=== PATIENT | female | born 1955 | race Caucasian/White ===

== ENCOUNTER 2020-01-31 14:12 | Inpatient (IN) ==
[2020-01-31] MEDS ORDERED: ONDANSETRON 4 MG/2 ML VIAL IV ONE (14:30)
[2020-01-31] MEDS ORDERED: HYDROmorphone 0.5 MG/0.5 ML SYRINGE IV PRN (14:30)
[2020-01-31] MEDS ORDERED: LACTATED RINGERS 1,000 ML IV ONE (14:30)
--- NOTE | 2020-01-31 14:35 | Emergency Department Note ---
Abdominal Pain HPI - General Chief Complaint: Abdominal Pain Stated Complaint: upper abd pain, possibly gallbladder? Time Seen by Provider: 01/31/20 14:30 Source: patient Mode of arrival: ambulatory Limitations: no limitations - History of Present Illness HPI Narrative: This patient began having right upper quadrant pain about 5 PM yesterday afternoon and it will go away. Associated with some nausea. She has had 2 other episodes similar to this but they both went away in about 2 hours. No diarrhea. She does feel little discomfort in the back. - Related Data Home Medications Medication Instructions Recorded Confirmed Estradiol [Estrace] 2 mg PO DAILY 01/31/20 01/31/20 Progesterone, Micronized 200 mg PO HS 01/31/20 01/31/20 [Progesterone] Thyroid,Pork [[place] Thyroid] 15 mg PO DAILY 01/31/20 01/31/20 Allergies Allergy/AdvReac Type Severity Reaction Status Date / Time Penicillins Allergy Intermediate Hives Verified 01/31/20 17:22 Review of Systems All systems ED: reviewed and negative except as stated. Abdominal Pain PMH - Past Medical History Medical history: Reports: no medical history - Social History Smoking status: Never smoker Physical Exam Limitations: no limitations General appearance: alert Head: atraumatic Eye: Present: normal appearance ENT: Present: normal exam Neck: Present: normal inspection Chest: Present: normal inspection Respiratory: Present: normal lung sounds bilaterally Cardiovascular: Present: regular rate, normal rhythm, normal heart sounds Abdominal: Present: soft, tenderness. Absent: distention, guarding, rebound, rigidity Abdominal tenderness: Present: RUQ, moderate Neurological: Present: alert Psychiatric: Present: normal affect Skin: Present: warm, dry Course Vital Signs Temperature 97.9 F 01/31/20 14:16 Pulse Rate 88 01/31/20 14:16 Respiratory Rate 18 01/31/20 14:16 Blood Pressure 169/80 01/31/20 14:16 Pulse Oximetry (%) 98 01/31/20 14:16 Temperature 98.8 F 02/01/20 04:10 Pulse Rate 80 02/01/20 04:10 Respiratory Rate 14 02/01/20 04:10 Blood Pressure 131/70 02/01/20 04:10 Pulse Oximetry (%) 96 02/01/20 04:10 Abdominal Pain - MDM Narrative Medical decision making narrative: This patient has evidence of cholecystitis. I treated her with Levaquin and Flagyl due to her penicillin allergy. Discussed the case with Dr. Ramirez and she will be admitted to the hospital. - Lab Data Lab results reviewed: Yes I reviewed the patient's lab results. Result diagrams: 02/01/20 05:35 02/01/20 05:36 Lab Results 01/31/20 01/31/20 01/31/20 Range/Units 14:40 14:58 14:58 WBC 9.3 (4.50-11.00) K/mcL RBC 4.73 (3.59-5.38) M/mcL Hgb 14.8 (11.2-15.7) g/dL Hct 43.0 (34.1-44.9) % MCV 90.9 (80.0-100.0) fL MCH 31.3 (26.0-34.0) pg MCHC 34.4 (31.0-36.0) g/dL RDW 12.6 (11.5-14.5) % Plt Count 247 (140-440) K/mcL MPV 10.7 H (7.4-10.4) fL Gran % 77.4 (38.0-78.0) % Lymph % (Auto) 12.4 L (15.5-49.0) % [place] % (Auto) 9.3 (1.0-12.0) % Eos % (Auto) 0.5 (0.0-7.0) % Baso % (Auto) 0.4 (0.0-2.0) % Gran # 7.16 (1.80-8.00) K/mcL Lymph # (Auto) 1.15 L (1.50-4.80) K/mcL [place] # (Auto) 0.86 (0.10-0.90) K/mcL Eos # (Auto) 0.05 (0.00-0.70) K/mcL Baso # (Auto) 0.04 (0.00-0.30) K/mcL PT (11.9-14.5) sec INR (0.9-1.1) Sodium 136 (133-145) mmol/L Potassium 3.5 (3.3-5.1) mmol/L Chloride 103 (96-108) mmol/L Carbon Dioxide 18 L (22-30) mmol/L Anion Gap 15.0 (8-16) BUN 11 (8-23) mg/dl Creatinine 0.7 (0.6-1.1) mg/dl GFR Calculation 91 Glucose 118 H (70-105) mg/dL Calcium 9.0 (8.6-10.4) mg/dl Total Bilirubin 2.4 H (0.0-1.0) mg/dL AST 1132 H (0-37) U/l ALT 1046 H (0-40) U/l Alkaline Phosphatase 196 H (39-117) U/L Total Protein 7.1 (5.9-8.4) gm/dL Albumin 3.9 (3.2-5.2) gm/dL Globulin 3.2 (2.2-3.7) gm/dL Albumin/Globulin Ratio 1.2 (1.0-2.3) Lipase 25 (7-60) U/L Urine Color Yellow Urine Appearance Hazy Urine pH 7.0 (5.0-9.0) Ur Specific [place] 1.014 (1.000-1.035) Urine Protein Neg (NEG) mg/dL Urine Glucose (UA) Negative (NEG) mg/dL Urine Ketones Neg (NEG) mg/dL Urine Occult Blood 0.03 A (<0.03) mg/dL Urine Nitrate Neg (NEG) Urine Bilirubin Neg (NEG) mg/dL Urine Urobilinogen Neg (NEG) mg/dL Ur Leukocyte Esterase 250 A (NEG) /uL Urine RBC 2 H (0-1) /hpf Urine WBC 31 H (0-4) /hpf Ur Squamous Epith Cells 17 H (0-4) /hpf Ur Transition Epith Cell 2 (0-2) /hpf Urine Bacteria Few A (0) /hpf Urine Mucus Mod (0) /hpf Ur Culture Indicated? No 01/31/20 Range/Units 14:58 WBC (4.50-11.00) K/mcL RBC (3.59-5.38) M/mcL Hgb (11.2-15.7) g/dL Hct (34.1-44.9) % MCV (80.0-100.0) fL MCH (26.0-34.0) pg MCHC (31.0-36.0) g/dL RDW (11.5-14.5) % Plt Count (140-440) K/mcL MPV (7.4-10.4) fL Gran % (38.0-78.0) % Lymph % (Auto) (15.5-49.0) % [place] % (Auto) (1.0-12.0) % Eos % (Auto) (0.0-7.0) % Baso % (Auto) (0.0-2.0) % Gran # (1.80-8.00) K/mcL Lymph # (Auto) (1.50-4.80) K/mcL [place] # (Auto) (0.10-0.90) K/mcL Eos # (Auto) (0.00-0.70) K/mcL Baso # (Auto) (0.00-0.30) K/mcL PT 12.3 (11.9-14.5) sec INR 0.9 (0.9-1.1) Sodium (133-145) mmol/L Potassium (3.3-5.1) mmol/L Chloride (96-108) mmol/L Carbon Dioxide (22-30) mmol/L Anion Gap (8-16) BUN (8-23) mg/dl Creatinine (0.6-1.1) mg/dl GFR Calculation Glucose (70-105) mg/dL Calcium (8.6-10.4) mg/dl Total Bilirubin (0.0-1.0) mg/dL AST (0-37) U/l ALT (0-40) U/l Alkaline Phosphatase (39-117) U/L Total Protein (5.9-8.4) gm/dL Albumin (3.2-5.2) gm/dL Globulin (2.2-3.7) gm/dL Albumin/Globulin Ratio (1.0-2.3) Lipase (7-60) U/L Urine Color Urine Appearance Urine pH (5.0-9.0) Ur Specific [place] (1.000-1.035) Urine Protein (NEG) mg/dL Urine Glucose (UA) (NEG) mg/dL Urine Ketones (NEG) mg/dL Urine Occult Blood (<0.03) mg/dL Urine Nitrate (NEG) Urine Bilirubin (NEG) mg/dL Urine Urobilinogen (NEG) mg/dL Ur Leukocyte Esterase (NEG) /uL Urine RBC (0-1) /hpf Urine WBC (0-4) /hpf Ur Squamous Epith Cells (0-4) /hpf Ur Transition Epith Cell (0-2) /hpf Urine Bacteria (0) /hpf Urine Mucus (0) /hpf Ur Culture Indicated? - Radiology Data Radiology results reviewed: Yes I reviewed the patient's radiology results. Disposition Pt seen by TEMPERATURE LOGGING OPERATOR/PA only: No Clinical Impression: Cholelithiasis and cholecystitis without obstruction Disposition: Xfer As Inpt ([facility]) Condition: Fair
[2020-01-31] MEDS ORDERED: metroNIDAZOLE 500 MG/100 ML BAG IV ONE (15:30)
[2020-01-31] MEDS ORDERED: LEVOFLOXACIN 750 MG/150 ML BAG IV ONE (15:30)
[2020-01-31 15:37] LABS: Basophils # (Auto) 0.04 K/mcL (0.00-0.30); Basophils % (Auto) 0.4 % (0.0-2.0); Eosinophils # (Auto) 0.05 K/mcL (0.00-0.70); Eosinophils % (Auto) 0.5 % (0.0-7.0); Granulocytes % (Auto) 77.4 % (38.0-78.0); Hemoglobin 14.8 g/dL (11.2-15.7); Lymphocytes # (Auto) 1.15 K/mcL (1.50-4.80); Lymphocytes % (Auto) 12.4 % (15.5-49.0); Mean Cell Volume 90.9 fL (80.0-100.0); Mean Corpuscular HGB Conc 34.4 g/dL (31.0-36.0); Mean Platelet Volume 10.7 fL (7.4-10.4); Monocytes # (Auto) 0.86 K/mcL (0.10-0.90); Monocytes % (Auto) 9.3 % (1.0-12.0); Platelet Count 247 K/mcL (140-440); RBC 4.73 M/mcL (3.59-5.38); Red Cell Distribution Width 12.6 % (11.5-14.5); WBC 9.3 K/mcL (4.50-11.00)
--- NOTE | 2020-01-31 15:54 | Ultrasound Report ---
CLINICAL INFORMATION: , Pain COMPARISON: None. FINDINGS: Liver is mildly enlarged and heterogeneous spanning 18 cm mid clavicular line. No focal hepatic lesions. There are multiple small stones in the gallbladder,. Gallbladder wall is mildly thickened at 4 mm and there is focal tenderness. Common bile duct is normal: 5 mm and the pancreas is unremarkable. No free fluid IMPRESSION: Cholecystitis. Mild hepatomegaly with heterogeneous echotexture suggesting diffuse hepatocellular process Interpreted and Authenticated by: Oleg Castillo 01/31/20
[2020-01-31 15:55] LABS: Appearance,Urine HAZY; Bacteria,Urine FEW /hpf (0); Bilirubin,Urine NEG (NEG); Color,Urine YELLOW; Culture Indicated,Urine NO; Glucose,Urine (UA) NEGATIVE (NEG); Ketones,Urine NEG (NEG); Leukocyte Esterase,Urine 250 /uL (NEG); Mucus,Urine MOD /hpf (0); Nitrate,Urine NEG (NEG); Protein,Urine NEG (NEG); Specific Gravity,Urine 1.014 (1.000-1.035); Urine Blood 0.03 mg/dL (<0.03); Urine RBC 2 /hpf (0-1); Urine Squamous Epithelial Cell 17 /hpf (0-4); Urine Transitional Epi Cells 2 /hpf (0-2); Urine WBC 31 /hpf (0-4); Urobilinogen,Urine NEG (NEG)
[2020-01-31 15:56] LABS: Albumin 3.9 gm/dL (3.2-5.2); Albumin/Globulin Ratio 1.2 (1.0-2.3); Alkaline Phosphatase 196 U/L (39-117); Bilirubin,Total 2.4 mg/dL (0.0-1.0); Blood Urea Nitrogen 11 mg/dl (8-23); Carbon Dioxide 18 mmol/L (22-30); Chloride 103 mmol/L (96-108); Globulin 3.2 gm/dL (2.2-3.7); Glomerular Filtration Rate 91; Glucose 118 mg/dL (70-105)
[2020-01-31 16:13] LABS: ALT/SGPT 1046 U/l (0-40); AST/SGOT 1132 U/l (0-37)
[2020-01-31] MEDS ORDERED: PROMETHAZINE 25 MG/ML VIAL IM PRN (16:21)
[2020-01-31] MEDS: LEVOFLOXACIN 750 MG/150 ML BAG IV SCH (17:48)
[2020-01-31] MEDS ORDERED: PROMETHAZINE 25 MG/ML VIAL IV PRN (18:06)
--- NOTE | 2020-01-31 18:07 | General Surg History&Physical ---
History of Present Illness Patient information: Note initiated : 01/31/20 at 6:04 pm Service Date, if different from initiated Date: [] Patient: Francine Thrasher a 64 y/o F admitted on 01/31/20 for Upper abd Pain, Possibly Gallbladder?. Chief Complaint: [] HPI: Ms. Thrasher is a 64 year old F admitted for evaluation of abdominal pain. The patient had onset of severe right upper quadrant epigastric pain last evening about 5 PM. The pain continued through the night. She developed nausea earlier today. There was no radiation to her back shoulder. She has had 3 prior episodes the last week but these lasted only about 2 hours and then resolved. There is no relationship to meals. Patient evaluated in emergency room and noted to have elevated LFTs and bilirubin. Lipase was normal. She remains mildly symptomatic. Ultrasound shows mildly thickened gallbladder wall with multiple small stones. No ductal stone was seen. Review of Systems All systems PM: reviewed and no additional remarkable complaints except as stated (negative except as noted in the HPI and below) - EENT Nose, mouth and throat: dizziness - Gastrointestinal abdominal pain, cramping, nausea - Genitourinary Genitourinary: urinary incontinence (stress incontinence) - Musculoskeletal other (right hip pain) - Hematologic/Lymphatic no easy bleeding, no easy bruising, no lymphadenopathy - Allergic/Immunologic no tongue swelling, no throat swelling, no uticaria, no wheezing, no lip swelling Past History Past medical history: No known chronic medical illness except for hypothyroidism Past surgical history: Appendectomy. Left total hip arthroplasty Past family history: Father age 52 due to throat cancer Mother age 69 due to congestive heart 1 sibling with coronary artery disease. 1 sibling with ovarian cancer, multiple siblings with hypertension Past social history: Denies tobacco use. Occasional alcohol use. Denies drug use. Retired Medications and Allergies Home Medications Medication Instructions Recorded Confirmed Type Estradiol [Estrace] 2 mg PO DAILY 01/31/20 01/31/20 History Progesterone, Micronized 200 mg PO HS 01/31/20 01/31/20 History [Progesterone] Thyroid,Pork [[place] Thyroid] 15 mg PO DAILY 01/31/20 01/31/20 History Allergies Allergy/AdvReac Type Severity Reaction Status Date / Time Penicillins Allergy Intermediate Hives Verified 01/31/20 17:22 Exam Temp Pulse Resp BP Pulse Ox 98.6 F 83 18 165/76 96 01/31/20 17:14 01/31/20 17:14 01/31/20 17:14 01/31/20 17:14 01/31/20 17:14 - General physical appearance well developed, well nourished, no distress - Eyes PERRL, normal ocular movement, icteric (mild scleral icterus) - ENT normal pinna, normal nares, normal mucosa, no hearing loss, no congestion - Head Head exam IM: Present: atraumatic, normocephalic - Neck no masses, no bruits, trachea midline, no lymphadenopathy, no venous distension - Cardiovascular Cardiovascular exam IM: Present: normal rate and rhythm - Respiratory normal expansion, normal respiratory effort, clear to percussion, clear to auscultation - Abdomen Abdomen: Present: soft, tender (mild epigastric and right upper quadrant tenderness with guarding), bowel sounds, guarding Hernia: Present: none - Genitourinary Present: normal external genitalia - Integumentary Present: no rash, no growths, no abnormal pigmentation - Neurologic Present: normal coordination, normal sensation - Musculoskeletal Present: normal gait, normal posture - Psychiatric Present: oriented to time, oriented to person, oriented to place, speech is normal, memory intact Assessment and Plan (1) Cholelithiasis and cholecystitis without obstruction Because of elevated transaminases. Patient will participate She's been counseled for laparoscopic cholecystectomy. If there is common bile duct stone. , Gastroenterology will be consulted for ERCP Status: Acute
[2020-01-31] MEDS: 0.9 % SODIUM CHLORIDE 1,000 ML IV SCH (18:54)
[2020-01-31 19:06] LABS: INR 0.9 (0.9-1.1); Prothrombin Time 12.3 sec (11.9-14.5)
[2020-01-31] MEDS: PROGESTERONE PO SCH (22:00)
[2020-02-01] MEDS: 0.9 % SODIUM CHLORIDE 1,000 ML IV SCH ×3 (04:16→16:45)
[2020-02-01 06:29] LABS: Basophils # (Auto) 0.05 K/mcL (0.00-0.30); Basophils % (Auto) 0.9 % (0.0-2.0); Eosinophils # (Auto) 0.16 K/mcL (0.00-0.70); Eosinophils % (Auto) 2.8 % (0.0-7.0); Hemoglobin 13.4 g/dL (11.2-15.7); Lymphocytes # (Auto) 1.29 K/mcL (1.50-4.80); Lymphocytes % (Auto) 22.4 % (15.5-49.0); Mean Cell Volume 92.6 fL (80.0-100.0); Mean Corpuscular HGB Conc 33.5 g/dL (31.0-36.0); Mean Platelet Volume 10.3 fL (7.4-10.4); Monocytes # (Auto) 0.74 K/mcL (0.10-0.90); Monocytes % (Auto) 12.9 % (1.0-12.0); Platelet Count 217 K/mcL (140-440); RBC 4.32 M/mcL (3.59-5.38); Red Cell Distribution Width 13.1 % (11.5-14.5); WBC 5.8 K/mcL (4.50-11.00)
[2020-02-01 06:58] LABS: AST/SGOT 587 U/l (0-37); Albumin 3.3 gm/dL (3.2-5.2); Albumin/Globulin Ratio 1.2 (1.0-2.3); Alkaline Phosphatase 179 U/L (39-117); Bilirubin,Direct 0.5 mg/dL (0.0-0.3); Bilirubin,Total 1.4 mg/dL (0.0-1.0); Calcium 8.2 mg/dl (8.6-10.4); Carbon Dioxide 20 mmol/L (22-30); Globulin 2.7 gm/dL (2.2-3.7); Glomerular Filtration Rate 77; Glucose 101 mg/dL (70-105); Lactate Dehydrogenase 313 U/L (94-250); Triglycerides 99 mg/dl (<150)
[2020-02-01 07:14] LABS: ALT/SGPT 743 U/l (0-40); Blood Urea Nitrogen 7 mg/dl (8-23); Chloride 110 mmol/L (96-108); Phosphorous 2.3 mg/dL (2.7-4.5)
[2020-02-01] MEDS: THYROID,PORK 30 MG TABLET PO SCH (08:10)
--- NOTE | 2020-02-01 09:20 | XRay Report ---
CLINICAL INFORMATION: Preop COMPARISON: 06/01/2017 TECHNIQUE: PA and Lateral views FINDINGS: The heart size, mediastinum and pulmonary vessels are unremarkable. The lungs are clear. There are no effusions. The bones and soft tissues are within normal limits. IMPRESSION: Normal chest. Interpreted and Authenticated by: Oleg Castillo 02/01/20
[2020-02-01] MEDS: ESTRADIOL 1 MG TABLET PO SCH (09:33)
[2020-02-01] MEDS: LEVOFLOXACIN 750 MG/150 ML BAG IV SCH (10:00)
--- NOTE | 2020-02-01 11:24 | Magnetic Resonance Report ---
CLINICAL INFORMATION: Right upper quadrant pain COMPARISON: None. TECHNIQUE: MRCP was performed using 3D FRFSE respiratory triggered and single-shot FSE thick slab technique. Axial T2 SSFSE and coronal SSFSE images were obtained through the upper abdomen as well. FINDINGS: There is moderate diffuse gallbladder wall thickening with pericholecystic fluid and small stones layering dependently in the gallbladder all compatible with cholecystitis. Intrahepatic, common hepatic and common bile ducts are normal in caliber, the CBD is 5 mm. No evidence of choledocholithiasis. The liver is normal in size configuration and signal intensity without focal lesion. Both kidneys, adrenal glands, spleen and pancreas including pancreatic duct are unremarkable. There is no free air, free fluid or adenopathy. Small hiatal hernia appreciated. Stomach and visualized small large bowel are normal. IMPRESSION: 1. Cholecystitis. 2. Intrahepatic-caio common hepatic common bile and pancreatic ducts are all normal. No evidence of choledocholithiasis. 3. Liver is unremarkable. 4. Small hiatal hernia Interpreted and Authenticated by: Oleg Castillo 02/01/20
--- NOTE | 2020-02-01 13:13 | General Surgery Progress Note ---
Subjective Patient reports: feels better, pain is less, flatus, diarrhea, afebrile Narrative: Note initiated : 02/01/20 at 1:10 pm Service Date, if different from initiated Date: [] Patient: Francine Thrasher 64 y/o F admitted on 01/31/20 for Upper abd Pain, Possibly Gallbladder?. Chief Complaint: [patient is feeling better. She has less discomfort. She does not have nausea or pain. White blood count 5.8, hemoglobin 13.4, hematocrit 40, phosphorus 2.3, bilirubin 1.4, liver function tests are trending downward. MRCP shows no evidence of common bile duct stone. Patient counseled for laparoscopic cholecystectomy which will be performed tomorrow.] Objective Temp Pulse Resp BP Pulse Ox 98.3 F 78 18 144/78 94 02/01/20 11:58 02/01/20 11:58 02/01/20 11:58 02/01/20 11:58 02/01/20 11:58 - Additional Data Intake & Output - Last 24 hours: Intake & Output 01/30/20 01/31/20 02/01/20 02/02/20 05:59 05:59 05:59 05:59 Intake Total 2884 150 Output Total 900 900 Balance 1984 -750 Weight 169 lb - General physical appearance well developed, well nourished, no distress - Eyes PERRL, normal ocular movement - ENT normal pinna, normal nares, normal mucosa, no hearing loss, no congestion - Neck no masses, no bruits, trachea midline, no lymphadenopathy, no venous distension - Respiratory normal expansion, normal respiratory effort, clear to auscultation - Cardiovascular Cardiovascular exam: Present: normal rate and rhythm, RRR, +S1, +S2. Absent: JVD, tachycardia - Abdomen non tender, bowel sounds (present), surgical scars (none), masses (none) - Integumentary no rash, no growths, no abnormal pigmentation - Neurologic normal coordination, normal sensation - Musculoskeletal normal gait, normal posture - Psychiatric oriented to time, oriented to person, oriented to place, speech is normal, me pam intact - Labs 02/01/20 05:35 02/01/20 05:36 Diabetes panel 01/31/20 02/01/20 Range/Units 14:58 05:36 Sodium 136 141 (133-145) mmol/L Potassium 3.5 3.9 (3.3-5.1) mmol/L Chloride 103 110 H (96-108) mmol/L Carbon Dioxide 18 L 20 L (22-30) mmol/L BUN 11 7 L (8-23) mg/dl Creatinine 0.7 0.8 (0.6-1.1) mg/dl Glucose 118 H 101 (70-105) mg/dL Calcium 9.0 8.2 L (8.6-10.4) mg/dl AST 1132 H 587 H (0-37) U/l ALT 1046 H 743 H (0-40) U/l Alkaline Phosphatase 196 H 179 H (39-117) U/L Total Protein 7.1 6.0 (5.9-8.4) gm/dL Albumin 3.9 3.3 (3.2-5.2) gm/dL Triglycerides 99 (<150) mg/dl Calcium panel 01/31/20 02/01/20 Range/Units 14:58 05:36 Calcium 9.0 8.2 L (8.6-10.4) mg/dl Phosphorus 2.3 L (2.7-4.5) mg/dL Albumin 3.9 3.3 (3.2-5.2) gm/dL Pituitary panel 01/31/20 02/01/20 Range/Units 14:58 05:36 Sodium 136 141 (133-145) mmol/L Potassium 3.5 3.9 (3.3-5.1) mmol/L Chloride 103 110 H (96-108) mmol/L Carbon Dioxide 18 L 20 L (22-30) mmol/L BUN 11 7 L (8-23) mg/dl Creatinine 0.7 0.8 (0.6-1.1) mg/dl Glucose 118 H 101 (70-105) mg/dL Calcium 9.0 8.2 L (8.6-10.4) mg/dl Adrenal panel 01/31/20 02/01/20 Range/Units 14:58 05:36 Sodium 136 141 (133-145) mmol/L Potassium 3.5 3.9 (3.3-5.1) mmol/L Chloride 103 110 H (96-108) mmol/L Carbon Dioxide 18 L 20 L (22-30) mmol/L BUN 11 7 L (8-23) mg/dl Creatinine 0.7 0.8 (0.6-1.1) mg/dl Glucose 118 H 101 (70-105) mg/dL Calcium 9.0 8.2 L (8.6-10.4) mg/dl Total Bilirubin 2.4 H 1.4 H (0.0-1.0) mg/dL AST 1132 H 587 H (0-37) U/l ALT 1046 H 743 H (0-40) U/l Alkaline Phosphatase 196 H 179 H (39-117) U/L Total Protein 7.1 6.0 (5.9-8.4) gm/dL Albumin 3.9 3.3 (3.2-5.2) gm/dL Assessment and Plan (1) Cholelithiasis and cholecystitis without obstruction Status: Acute Assessment and plan: Patient is significantly improved She will be scheduled for laparoscopic cholecystectomy in the morning. Current Visit: Yes - Time Spent With Patient Total time spent is greater than 50% in coordination of care (as documented) at patient's floor/unit and/or counseling patient:
[2020-02-01] MEDS: PROGESTERONE PO SCH ×2 (16:45→21:00)
--- NOTE | 2020-02-01 18:46 | Internal Medicine Consult Note ---
Medical - CN: HPI - Data of Consult Patient: new to practice Consult date: 02/01/20 Requesting physician: Jak Ramirez Primary Care Provider: PCP No - Consult Narrative Reason for consult: elevated liver enzymes History of present illness: Ms. Thrasher is a 64 year old F who is admitted with cholecystitis and we are asked to consult due to elevated liver enzymes. She has a 4 month history of intermittent RUQ strong, steady squeezing abdominal pain that does not radiate to the back. Episodes last 2 hours at a time, but on 01/29 she began to have unrelenting RUQ pain and ultimately presented to ED 01/30. US showed cholecystitis with cholelithiasis and hepatomegaly (18cm at midclavicular line) with echotexture suggesting diffuse hepatocellular process. MRCP showed no choledocholithiasis. Liver enzymes elevated in a predominantly hepatic pattern with transaminases initially in the 1000, ALP 196, total bilirubin 2.4. Today, these have fallen with transaminases 500-700, total bilirubin 1.4. She denies any prior history of liver disease. She denies any blood transfusion, unregulated tattoo, pertinent travel history, family history of liver disease or diabetes. She has not started any new medications, but recently started a variety of supplements for "body aches" and "to clean out fibrin", prescribed Dr Granados at a hormone clinic in [place]. She rarely drinks alchool, perhaps a few times a year. She has never been a heavy drinker. She denies any acetaminophen use. She denies any fever. She has had some dark urine, but no jaundice, pruritus, ascites. CC: Jak Ramirez MD All systems: reviewed and no additional remarkable complaints except as stated (see HPI) Medical - CN: PMH Medical history: Thyroid disease. Surgical history: Appendectomy, left total hip replacement Family history: reviewed and not pertinent Social history: Rare ETOH. Nonsmoker. No history of recreational drug use. Smoking status: Never smoker Have you smoked in the last 12 months: No Drug use: none Alcohol use: rarely Employment history: retired. Moved here from [place] 15 years ago. Medical - CN: Meds Home Medications Medication Instructions Recorded Confirmed Type Estradiol [Estrace] 2 mg PO DAILY 01/31/20 01/31/20 History Progesterone, Micronized 200 mg PO HS 01/31/20 01/31/20 History [Progesterone] Thyroid,Pork [[place] Thyroid] 15 mg PO DAILY 01/31/20 01/31/20 History Allergies Allergy/AdvReac Type Severity Reaction Status Date / Time Penicillins Allergy Intermediate Hives Verified 01/31/20 17:22 Medical - CN: Exam - Constitutional Vitals: Temp Pulse Resp BP Pulse Ox 98.3 F 79 16 155/83 98 02/01/20 16:00 02/01/20 16:00 02/01/20 16:00 02/01/20 16:00 02/01/20 16:00 General appearance: average body habitus, cooperative, no acute distress - Head Head exam: Present: atraumatic, normal inspection - Eye Eye exam: Present: normal appearance - ENT ENT exam: Present: mucous membranes moist, normal external ear exam - Neck Neck exam: Present: normal inspection - GI/Abdominal GI/Abdominal exam: Present: soft, tenderness (RUQ). Absent: guarding, hernia, organomegaly - Extremities Exam Extremities exam: Present: normal inspection, Foot pink and warm. Absent: pedal edema - Skin Skin exam: Present: dry, normal color (No stigmata of chronic liver disease.), warm Medical - CN: Result - Labs CBC & Chem 7: 02/01/20 05:35 02/01/20 05:36 Labs: Short CBC 02/01/20 Range/Units 05:35 WBC 5.8 (4.50-11.00) K/mcL Hgb 13.4 (11.2-15.7) g/dL Hct 40.0 (34.1-44.9) % Plt Count 217 (140-440) K/mcL BMP 02/01/20 05:36 Sodium 141 Potassium 3.9 Chloride 110 H Carbon Dioxide 20 L BUN 7 L Creatinine 0.8 Glucose 101 Calcium 8.2 L Liver Function 02/01/20 Range/Units 05:36 Total Bilirubin 1.4 H (0.0-1.0) mg/dL Direct Bilirubin 0.5 H (0.0-0.3) mg/dL GGT 204 H (5-36) U/L AST 587 H (0-37) U/l ALT 743 H (0-40) U/l Alkaline Phosphatase 179 H (39-117) U/L Albumin 3.3 (3.2-5.2) gm/dL Medical - CN: A/P (1) Cholelithiasis and cholecystitis without obstruction Status: Acute Assessment and plan: We agree with Dr. Ramirez that elevated liver enzymes are likely due to acute cholecystitis. We will order a hepatitis C antibody for cohort screening. She will follow up with our clinic ([facility] [address] [place] [address] ) as an outpatient and further work up will be undertaken if she fails to have normalization of liver profile following cholecystectomy. Drug induced liver injury related to new supplements is a possibility. She appears to understand this plan.
[2020-02-01] MEDS ORDERED: PROGESTERONE MICRONIZED 200 MG PO SCH (21:00)
[2020-02-01] MEDS ORDERED: [UNRECOGNIZED DRUG - OTHER] PO SCH (21:00)
[2020-02-02] MEDS: 0.9 % SODIUM CHLORIDE 1,000 ML IV SCH ×4 (03:15→21:45)
[2020-02-02 06:38] LABS: Basophils # (Auto) 0.04 K/mcL (0.00-0.30); Basophils % (Auto) 0.8 % (0.0-2.0); Eosinophils # (Auto) 0.16 K/mcL (0.00-0.70); Granulocytes % (Auto) 56.7 % (38.0-78.0); Hematocrit 39.3 % (34.1-44.9); Hemoglobin 13.3 g/dL (11.2-15.7); Lymphocytes % (Auto) 28.5 % (15.5-49.0); Mean Cell Volume 93.6 fL (80.0-100.0); Mean Corpuscular HGB Conc 33.8 g/dL (31.0-36.0); Mean Platelet Volume 10.4 fL (7.4-10.4); Monocytes # (Auto) 0.58 K/mcL (0.10-0.90); Platelet Count 214 K/mcL (140-440); Red Cell Distribution Width 13.2 % (11.5-14.5); WBC 5.3 K/mcL (4.50-11.00)
[2020-02-02 06:56] LABS: ALT/SGPT 473 U/l (0-40); AST/SGOT 212 U/l (0-37); Albumin 3.2 gm/dL (3.2-5.2); Albumin/Globulin Ratio 1.2 (1.0-2.3); Alkaline Phosphatase 155 U/L (39-117); Bilirubin,Total 0.6 mg/dL (0.0-1.0); Blood Urea Nitrogen 6 mg/dl (8-23); Carbon Dioxide 22 mmol/L (22-30); Chloride 108 mmol/L (96-108); Globulin 2.6 gm/dL (2.2-3.7); Glomerular Filtration Rate 77; Glucose 110 mg/dL (70-105); Lactate Dehydrogenase 176 U/L (94-250); Triglycerides 106 mg/dl (<150)
[2020-02-02 07:00] LABS: Bilirubin,Direct < 0.2 mg/dL (0.0-0.3); Phosphorous 2.2 mg/dL (2.7-4.5)
[2020-02-02] MEDS: THYROID,PORK 30 MG TABLET PO SCH (07:11)
[2020-02-02] MEDS ORDERED: THYROID, PORK 60 MG TABLET PO SCH (07:30)
[2020-02-02] MEDS: LEVOFLOXACIN 750 MG/150 ML BAG IV SCH (08:16)
[2020-02-02] MEDS: ESTRADIOL 1 MG TABLET PO SCH (08:19)
[2020-02-02] MEDS ORDERED: THYROID PORK 15 MG PO SCH (09:00)
[2020-02-02] MEDS ORDERED: IPRATROPIUM/ALBUTEROL 3 ML AMPUL.NEB NEB PRN ×3 (09:00→12:16)
[2020-02-02] MEDS ORDERED: SCOPOLAMINE 1 PATCH PATCH TOPICAL PRN ×2 (09:00→12:16)
[2020-02-02] MEDS ORDERED: ESTRADIOL 2 MG TABLET PO SCH (09:00)
[2020-02-02] MEDS ORDERED: MIDAZOLAM 2 MG/2 ML VIAL IV ONE (10:40)
[2020-02-02] MEDS ORDERED: fentaNYL 100 MCG/2 ML VIAL IV ONE (10:40)
[2020-02-02] MEDS ORDERED: ROCURONIUM 10 MG/ML ML IV ONE (10:40)
[2020-02-02] MEDS ORDERED: PROPOFOL 200 MG/20 ML VIAL IV ONE (10:40)
[2020-02-02] MEDS ORDERED: LIDOCAINE HCL/PF 100 MG/5 ML SYRINGE IV ONE (10:40)
[2020-02-02] MEDS ORDERED: DEXAMETHASONE 10 MG/ML VIAL IV ONE (10:40)
[2020-02-02] MEDS ORDERED: KETAMINE 100 MG/ML ML IV ONE (10:40)
[2020-02-02] MEDS ORDERED: GLYCOPYRROLATE 0.2 MG/ML VIAL IV ONE (10:40)
[2020-02-02] MEDS ORDERED: PHENYLEPHRINE 10 MG/ML VIAL IV ONE (10:40)
[2020-02-02] MEDS ORDERED: HYDROmorphone 1 MG/ML SYRINGE IV ONE (10:40)
[2020-02-02] MEDS ORDERED: ONDANSETRON 4 MG/2 ML VIAL IV ONE (10:40)
[2020-02-02] MEDS ORDERED: SUGAMMADEX SODIUM 200 MG/2 ML VIAL IV ONE (10:40)
[2020-02-02] MEDS ORDERED: METOPROLOL TARTRATE 5 MG/5 ML VIAL IV PRN (11:05)
[2020-02-02] MEDS ORDERED: PROMETHAZINE 25 MG/ML VIAL IM PRN (11:05)
[2020-02-02] MEDS ORDERED: NALOXONE HCL 0.4 MG/ML VIAL IV PRN (11:05)
[2020-02-02] MEDS ORDERED: HYDROmorphone 0.5 MG/0.5 ML SYRINGE IV PRN (11:05)
[2020-02-02] MEDS ORDERED: LABETALOL 5 MG/ML ML IV PRN (11:05)
[2020-02-02] MEDS ORDERED: LACTATED RINGERS 250 ML IV PRN (11:05)
[2020-02-02] MEDS ORDERED: METHOCARBAMOL 1,000 MG/10 ML VIAL IV PRN (11:05)
[2020-02-02] MEDS ORDERED: MEPERIDINE 50 MG/ML INJECTION IM PRN (11:05)
[2020-02-02] MEDS ORDERED: BENZOCAINE/MENTHOL 1 LOZENGE PO PRN (11:05)
[2020-02-02] MEDS ORDERED: PROMETHAZINE 25 MG/ML VIAL IV PRN ×3 (11:05→12:16)
[2020-02-02] MEDS ORDERED: ONDANSETRON 4 MG/2 ML VIAL IV PRN (11:05)
[2020-02-02] MEDS ORDERED: MEPERIDINE 25 MG/ML SYRINGE IV PRN (11:05)
[2020-02-02] MEDS ORDERED: FLUMAZENIL 0.1 MG/ML ML IV PRN (11:05)
[2020-02-02] MEDS ORDERED: ACETAMINOPHEN 1,000 MG/100 ML BOTTLE IV ONE (11:05)
[2020-02-02] MEDS ORDERED: LACTATED RINGERS 1,000 ML IV SCH (11:15)
--- NOTE | 2020-02-02 11:26 | Brief Operative Note ---
Date of procedure: 02/02/20 Pre-op diagnosis: acute cholecystitis with cholelithiasis Post-op diagnosis: other (acute cholecystitis with cholelithiasis) Procedure: laparoscopic cholecystectomy Grafts/Implants: No Anesthesia: GETA Findings: moderately severe inflammation of gall bladder Complications: none Surgeon: Jak Ramirez Estimated blood loss (cc): 10 Specimens Removed/Pathology: other (gallbladder) Condition: stable Disposition: PACU
[2020-02-02] MEDS: fentaNYL 100 MCG/2 ML VIAL IV PRN ×2 (11:48→11:50)
[2020-02-02] MEDS: 0.9 % SODIUM CHLORIDE 10 ML SYRINGE IV SCH ×2 (13:05→20:11)
[2020-02-02] MEDS: HYDROmorphone 1 MG/ML SYRINGE IV PRN ×2 (13:29→20:11)
--- NOTE | 2020-02-02 13:45 | Operative Note ---
DATE OF OPERATION: 02/02/2020 PREOPERATIVE DIAGNOSIS: Acute cholecystitis with cholelithiasis. POSTOPERATIVE DIAGNOSIS: Acute cholecystitis with cholelithiasis. PROCEDURE: Laparoscopic cholecystectomy. SURGEON: Jak Ramirez M.D. FINDINGS: Moderately-severe inflammation of the gallbladder. DESCRIPTION OF PROCEDURE: Under general anesthesia, the patient's abdomen was prepped and draped in a sterile field. Supraumbilical incision was made. Veress needle was inserted uneventfully. Abdomen was insufflated with 3 liters of CO2. A 12 mm port was placed. Laparoscope was placed. Under laparoscopic guidance, a 12 mm port and two 5 mm ports were placed in the right subcostal region. The gallbladder was grasped and positioned. There was moderately-severe inflammation of gallbladder. Cystic duct and cystic artery were dissected and followed back to the gallbladder. Cystic duct was clipped with five clips and divided. Cystic artery was clipped with four clips and divided. The gallbladder was from the infrahepatic bed using electrocautery. It was placed in an Endopouch and retrieved. Irrigation was carried out, and hemostasis was achieved in the bed. There was no bleeding. No drain was needed. CO2 was allowed to escape from the abdomen, and the ports were removed. Fascia at the umbilicus was closed with interrupted 0 Vicryl. Skin incisions were closed with deb. Tegaderm dressings were placed. The patient tolerated the procedure well. She was awakened, transferred to a bed, and taken to the postanesthetic care unit in stable, satisfactory condition. LCS:bryn Job ID: [id number] Doc ID: [id number] Jak Ramirez M.D.
[2020-02-02] MEDS ORDERED: PROGESTERONE PO SCH (21:00)
[2020-02-03] MEDS: 0.9 % SODIUM CHLORIDE 10 ML SYRINGE IV SCH (05:38)
[2020-02-03 06:46] LABS: Basophils # (Auto) 0.02 K/mcL (0.00-0.30); Basophils % (Auto) 0.2 % (0.0-2.0); Eosinophils # (Auto) 0.01 K/mcL (0.00-0.70); Eosinophils % (Auto) 0.1 % (0.0-7.0); Granulocytes % (Auto) 75.1 % (38.0-78.0); Hematocrit 37.7 % (34.1-44.9); Hemoglobin 12.6 g/dL (11.2-15.7); Lymphocytes # (Auto) 1.72 K/mcL (1.50-4.80); Lymphocytes % (Auto) 16.3 % (15.5-49.0); Mean Cell Volume 93.3 fL (80.0-100.0); Mean Corpuscular HGB Conc 33.4 g/dL (31.0-36.0); Mean Platelet Volume 10.4 fL (7.4-10.4); Monocytes # (Auto) 0.88 K/mcL (0.10-0.90); Monocytes % (Auto) 8.3 % (1.0-12.0); Platelet Count 208 K/mcL (140-440); RBC 4.04 M/mcL (3.59-5.38); Red Cell Distribution Width 13.2 % (11.5-14.5); WBC 10.5 K/mcL (4.50-11.00)
[2020-02-03 07:07] LABS: ALT/SGPT 324 U/l (0-40); AST/SGOT 102 U/l (0-37); Albumin/Globulin Ratio 1.2 (1.0-2.3); Alkaline Phosphatase 135 U/L (39-117); Bilirubin,Direct < 0.2 mg/dL (0.0-0.3); Bilirubin,Total 0.5 mg/dL (0.0-1.0); Blood Urea Nitrogen 7 mg/dl (8-23); Calcium 8.1 mg/dl (8.6-10.4); Carbon Dioxide 19 mmol/L (22-30); Globulin 2.5 gm/dL (2.2-3.7); Glomerular Filtration Rate 91; Glucose 107 mg/dL (70-105); Lactate Dehydrogenase 167 U/L (94-250); Triglycerides 86 mg/dl (<150); Uric Acid 3.9 mg/dL (2.5-8.0)
[2020-02-03 07:21] LABS: Chloride 110 mmol/L (96-108); Phosphorous 2.7 mg/dL (2.7-4.5)
[2020-02-03] MEDS ORDERED: THYROID, PORK 60 MG TABLET PO SCH (07:30)
[2020-02-03] MEDS ORDERED: ESTRADIOL 1 MG TABLET PO SCH (09:00)
[2020-02-03] MEDS ORDERED: LEVOFLOXACIN 750 MG/150 ML BAG IV SCH (09:00)
--- NOTE | 2020-02-03 12:06 | Discharge Summary ---
Providers - Providers Patient information: Note initiated : 02/03/20 at 12:05 pm Service Date, if different from initiated Date: [] Patient: Francine Thrasher 64 y/o F admitted on 01/31/20 for Upper abd Pain, Possibly Gallbladder?. Chief Complaint: [] Date of admission: 01/31/20 Discharge date: 02/03/20 Attending physician: Jak Ramirez [facility] Hospital Course: 64-year-old female with history of acute onset of severe right-sided abdominal pain with nausea on the evening prior to admission. Pain increased in severity and she was seen in the emergency room where was noted that she had a tender abdomen with mild leukocytosis and elevated LFTs. There was significant elevation in the ALT and AST with only mild elevation of alkaline phosphatase and bilirubin was also elevated. Patient was admitted and monitored. She had MRCP which was negative. She underwent laparoscopic cholecystectomy on yesterday. She had acute moderately severe edema of the gallbladder. She is doing well and only has mild soreness at this time. Right blood count 10.5, hemoglobin 12.6, hematocrit 37.7, bilirubin 0.5, LFTs continue to trend downward. Bilirubin is normal. She no longer has nausea. Patient is stable and is ready for discharge home Discharge diagnosis: acute cholecystitis with cholelithiasis Secondary discharge diagnosis: None Reason for admission: abdominal pain nausea leukocytosis and acute gallbladder inflammation Procedures: Laparoscopic cholecystectomy Pertinent studies/significant findings: Upper abdominal ultrasound MRCP Complications: None Exam Temp Pulse Resp BP Pulse Ox 98.0 F 72 18 148/74 98 02/03/20 06:41 02/03/20 06:41 02/03/20 06:41 02/03/20 06:41 02/03/20 06:54 - General physical appearance well developed, well nourished, no distress - Eyes PERRL, normal ocular movement, other (icterus has resolved) - ENT normal pinna, normal nares, normal mucosa, no hearing loss, no congestion - Head Head exam IM: Present: atraumatic, normocephalic - Neck no masses, no bruits, trachea midline, no lymphadenopathy, no venous distension - Cardiovascular Cardiovascular exam IM: Present: normal rate and rhythm - Respiratory normal expansion, normal respiratory effort, clear to percussion, clear to auscultation - Abdomen Abdomen: Present: soft, tender (mild tenderness around port sites otherwise benign abdominal exam), bowel sounds Hernia: Present: none - Genitourinary Present: normal external genitalia - Integumentary Present: no rash, no growths, no abnormal pigmentation - Neurologic Present: normal coordination, normal sensation - Musculoskeletal Present: normal gait, normal posture - Psychiatric Present: oriented to time, oriented to person, oriented to place, speech is normal, memory intact Discharge Plan - Patient/Caregiver Discharge Instructions Diet: Low Fat Additional Instructions: You may shower but do not rub the current dressings off. You may have the dressings changed in the office if needed Prescriptions: oxyCODONE/APAP [Percocet 5-325 mg] 1 tab PO Q4HP PRN #30 tablet PRN Reason: Pain Transmission Status: Sent to [facility] - Follow up Plan Follow up with: Jak Ramirez MD [Physician] - 02/15/20 11:00 am No,PCP [Primary Care Provider] - Disposition: Home, Self-Care Care Plan Goals: This discharge packet is provided to you to help keep you informed about your care. We want to ensure you get everything you need when you go home. You will also be receiving a call from us in a few days to follow up with you and see how you are doing since your discharge. This gives us a chance to listen to any concerns you maybe experiencing since you were discharged or any additional needs you may have, as well as providing us feedback on your care experience. We strive to always provide excellent care and thank you for your feedback and for choosing [facility]. Prognosis: Good Rehab Potential: Good I certify that the patient requires SNF services.: Yes Overall status at discharge: patient is back to baseline Pending Studies Resuscitation Status Full Code Diet Full Liquid Diet Start WedFebruary 01 1216 Estradiol (Estrace) [address] [facility] Last Admin: 02/03/20 08:44 Dose: 2 mg Documented by: LENNY Hydromorphone HCl (Dilaudid) 1 mg IV Q2HP PRN; Protocol PRN Reason: Per Pain Protocol Last Admin: 02/02/20 20:11 Dose: 1 mg Documented by: Admin: 02/02/20 13:29 Dose: 1 mg Documented by: [email or web address] Levofloxacin (Levaquin) 750 mg in 150 mls @ 100 mls/hr IV Q24H SONJA; Protocol Last Admin: 02/03/20 08:40 Dose: 100 mls/hr Documented by: LENNY Sodium Chloride (Sodium Chloride 0.9%) 1,000 mls @ 100 mls/hr IV .Q10H SONJA Last Admin: 02/02/20 21:45 Dose: 100 mls/hr Documented by: Infusion: 02/02/20 21:45 Dose: 100 mls/hr Documented by: Admin: 02/02/20 12:36 Dose: 100 mls/hr Documented by: [email or web address] Progesterone, Micronized, 200mg Tab 1 dose PO QHS SONJA Last Admin: 02/02/20 20:10 Dose: 1 dose Documented by: DAMIÁN Promethazine HCl (Phenergan) 12.5 mg IV Q4HP PRN; Protocol PRN Reason: Nausea/Vomiting Last Admin: 02/02/20 13:28 Dose: 12.5 mg Documented by: [email or web address] Sodium Chloride (Saline Flush) [address] [facility] Last Admin: 02/03/20 05:38 Dose: Not Given Documented by: Admin: 02/02/20 20:11 Dose: Not Given Documented by: Admin: 02/02/20 13:05 Dose: Not Given Documented by: [email or web address] Thyroid (Thyroid) [address] [facility] Last Admin: 02/03/20 06:45 Dose: 15 mg Documented by: LENNY Shift Summary 02/03/20 04:07 Shift Summary by Karrie Maxwell. Up with SBA assist. Walked in halls last night. Lap site X 4 with deb and tegaderm. Medicated around 9 pm with dilaudid. Pt slept well during the night. Knee high TEDs. NS @ 100 to left hand. Tolerating diet with no complaints. Poss d/c today. will update at bedside. Initialized on 02/03/20 04:07 - END OF NOTE
[2020-02-05 14:50] LABS: Hepatitis B Surface Antigen NON-REACTIVE (NON-REACTIVE); Hepatitis C Virus Antibody NON-REACTIVE (NON-REACTIVE)
--- NOTE | 2020-02-05 15:24 | Surgical Pathology Report ---
HISTOLOGY SPECIMEN MICROSCOPIC DIAGNOSIS GALLBLADDER, CHOLECYSTECTOMY: -- CHRONIC CHOLECYSTITIS WITH CHOLELITHIASIS AND CHOLESTEROLOSIS. -- SINGLE LYMPH NODE WITH REACTIVE CHANGE. (ACP:sln) PROCEDURAL IMPRESSION Cholelithiasis; cholecystitis. GROSS DESCRIPTION Received in formalin labeled gallbladder, is a purple-nogueira gallbladder. It is 9.5 x 3.3 x 2.4 cm. There is a metal clip on the duct. Near the duct there is a 0.9 x 0.5 x 0.3 cm firmer gurrola possible nodule. There are multiple yellow stones identified from less than 0.1 to 0.3 cm. The mucosa is green-gurrola with a few areas of lacy yellow pigmentation. The wall is up to 0.3 cm thick. [employer] sections are submitted in one cassette. (SCB:adj) Electronically Signed by: Rigoberto Ramirez M.D.
== END 2020-02-03 13:24 | disposition home or self-care (01) | DRG 419 ==
LOC: ED 14:12 → MEDSUR 17:14
PROVIDERS: ADMIT Family Medicine Adult Medicine; ATTEND Family Medicine Adult Medicine